=== PATIENT | female | born 1975 | race Caucasian/White ===

== ENCOUNTER 2020-02-27 06:10 | Day surgery (SDC) | payer OTHER ==
[~2020-02-27] VITALS: Ht 165.1 cm; Wt 85.3 kg
[~2020-02-27 06:10] MED LIST: DEPO-PROVE150 MG/11 IM; LIPITOR40 MG PO; LOSARTAN POTASS50 MG PO; METOPROLOL SUC100 MG PO
[2020-02-27] MEDS ORDERED: PHENTERMINE HCL15 MG PO (06:52)
[2020-02-27] MEDS ORDERED: PRILOSEC10 M1 PO (06:52)
--- NOTE | 2020-02-27 08:12 | NUR ---
02/27/20 0812 Elizabeth Ryan 0807- PT ARRIVES TO PACU AWAKE AND TALKING. PT REPORTS NO PAIN OR NAUSEA. RESP EVEN AND UNLABORED. OXYGEN SAT HIGH 90'S ON 3L VIA NC. 0811- OXYGEN TITRATED OFF. PT ASLEEP ON AND OFF.
--- NOTE | 2020-02-27 11:13 | OR ---
[facility] [address], [place] [address] Signed DATE OF OPERATION: 02/27/2020 SURGEON: Ian Powers MD PREOPERATIVE DIAGNOSES: 1. Epigastric abdominal pain. 2. Heartburn. 3. Chronic diarrhea/constipation. POSTOPERATIVE DIAGNOSES: 1. Mild diffuse superficial gastritis. 2. Multiple proximal gastric polyps. PROCEDURES: EGD with CLOtest and biopsies of the duodenum, antrum, and fundic polyps. ESTIMATED BLOOD LOSS: None. INDICATIONS: Mode is a 44-year-old female at 5 feet 5 inches, 187 pounds with a body mass index of 31. She had been asked to see me for upper endoscopy. She has had a lot of bilateral epigastric abdominal pain, heartburn, chronic alternating diarrhea and constipation. She has been on omeprazole. On physical exam, it seems like her pain is more along the costal margins. Her serum H. pylori was negative. She also has a very stressful job and has been through a recent divorce. She has 2 daughters remaining in the house. Overall, she says she is feeling better today. She is still having some pain on the costal margins. I met with Mode in the office and I gave her a booklet on upper endoscopy. We looked at that together along with the risks including, but not limited to gas bloating, crampy, abdominal pain, bleeding, perforation requiring surgery, and missed diagnosis. We also discussed the need for IV conscious sedation. She had expressed understanding and wished to proceed. DESCRIPTION OF PROCEDURE: Mdoe was taken into our endoscopy suite and placed in the supine semi-recumbent position. She was given IV sedation with 5 mg of Versed and 100 mcg of fentanyl. The posterior oropharynx was anesthetized with Hurricaine spray. A bite block was utilized for the case. The adult gastroscope had been introduced and advanced all the way out into the third portion of the duodenum under direct visualization of camera without difficulty. Her duodenum and pyloric bulb looked unremarkable. We took a biopsy of the Electronically Signed By: IAN POWERS MD 02/27/20 1113 PATIENT NAME: MODE LYN OPERATIVE REPORT DATE OF : 71 REPORT #: [id number] PHYSICIAN: IAN PWOERS MD PCP: CLARITZA FELICIANO REPORT IS CONFIDENTIAL AND NOT TO BE RELEASED WITHOUT AUTHORIZATION [facility] [address], [place] [address] Signed third portion of the duodenum because of the history of chronic diarrhea. Back in the stomach showed some very mild superficial erythematous changes consistent with mild gastritis. We took a biopsy of the antrum for CLOtest as well as pathologic review. Upon retroflexion of scope, the incisura was unremarkable. However, she had multiple small proximal benign-appearing gastric polyps consistent using her omeprazole. We took a biopsy of two of those polyps for pathologic review. We did not see an obvious hiatal hernia. The scope was withdrawn up through the GE junction, which was compliant without stricture. There was no gastric or esophageal varices. There was very little irritation to her Z-line. There was no Mullins's mucosa and no distal esophagitis. The middle and upper esophagus were unremarkable. After this, the gas had been suctioned out and the gastroscope removed. Mode tolerated the procedure quite well. RECOMMENDATIONS: I will see Mode back in my office in 7 to 14 days to review her results. Ian Powers MD ALB/MODL /[id number] cc: MD Claritza Hendrickson PA Copies: IAN POWERS MD, LINDA PA ~ Electronically Signed By: IAN POWERS MD 02/27/20 1113 PATIENT NAME: MODE LYN OPERATIVE REPORT DATE OF : 71 REPORT #: [id number] PHYSICIAN: IAN POWERS MD PCP: CLARITZA FELICIANO REPORT IS CONFIDENTIAL AND NOT TO BE RELEASED WITHOUT AUTHORIZATION
--- NOTE | 2020-03-01 12:01 | PATH ---
[facility] [address] [place], [place] [address] Signed SPECIMEN(S): A DUODENUM SPECIMEN(S): B ANTRUM/PYLORUS SPECIMEN(S): C STOMACH POLYP SPECIMEN SOURCE: A. DUODENUM B. ANTRUM/PYLORUS C. STOMACH POLYP CLINICAL HISTORY: Abdominal pain, heartburn, gastritis, gastric polyp. MICROSCOPIC DESCRIPTION: Histologic sections of all submitted blocks are examined by light microscopy. These findings, together with the gross examination, support the pathologic diagnosis. FINAL PATHOLOGIC DIAGNOSIS: A. Duodenum, biopsy: - Benign duodenal mucosa, negative for significantly increased intraepithelial lymphocytosis and villous blunting. B. Antrum/pylorus, biopsy: - Minimal chemical/reactive gastritis. - Negative for intestinal metaplasia. - Negative for Helicobacter pylori organisms on routine stain. C. Stomach polyp, polypectomy: - Benign gastric mucosa with rare dilated fundic glands, compatible with fundic gland polyp. DDF:emb:C2NR GROSS DESCRIPTION: Three specimens are received in three containers, labeled "LJ." A. The specimen, labeled "LJ, 1," and designated on the requisition "duodenum," is received in formalin and consists of a single curry soft tissue fragment that measures 0.3 cm in greatest dimension. The specimen is entirely submitted in cassette (A1). B. The specimen, labeled "LJ, 2," and designated on the requisition "antrum/pylorus," is received in formalin and consists of a single curry soft tissue fragment that measures 0.3 cm in greatest dimension. The specimen is entirely submitted in cassette (B1). C. The specimen, labeled "LJ, 3," and designated on the requisition "stomach polyp," is received in formalin and consists of two curry soft tissue fragments PATIENT NAME: MODE LYN PATHOLOGY DATE OF : 71 REPORT #: [id number] PHYSICIAN: CARYN PATHOLOGY PCP: BARRY FELICIANO REPORT IS CONFIDENTIAL AND NOT TO BE RELEASED WITHOUT AUTHORIZATION [facility] [address] [place], [place] [address] Signed that measure 0.3 cm in greatest dimension. The specimen is entirely submitted in cassette (C1). AT (under the direct supervision of a pathologist) The Gross Description was prepared using a voice recognition system. The report was reviewed for accuracy; however, sound-alike word errors, addition and/or deletions may occur. If there is any question about this report, please contact Client Services. PERFORMING LABORATORY: The technical component was performed by [facility] [address] ([employer]: Myriam Kirk MD; CLIA# [id number]). [facility], [address] [place] [id number] (CLIA# [id number]). Diagnostician: Adrián Link DO Pathologist Electronically Signed 03/01/2020 Copies: ~ PATIENT NAME: MODE LYN PATHOLOGY DATE OF : 71 REPORT #: [id number] PHYSICIAN: CARYN QUACH PCP: BARRY FELICIANO REPORT IS CONFIDENTIAL AND NOT TO BE RELEASED WITHOUT AUTHORIZATION
== END 2020-02-27 08:55 | disposition home or self-care (01) ==
LOC: DS 06:10 → OPS 06:10 → DS 06:45 → OPS 08:55
PROVIDERS: Colon & Rectal Surgery
PROC: 0DB78ZX Excision of Stomach, Pylorus, Via Natural or Artificial Opening Endoscopic, Diagnostic (ICD-10-PCS; 2020-02-27)
PROC: 0DB68ZX Excision of Stomach, Via Natural or Artificial Opening Endoscopic, Diagnostic (ICD-10-PCS; 2020-02-27)
PROC: 0DB98ZX Excision of Duodenum, Via Natural or Artificial Opening Endoscopic, Diagnostic (ICD-10-PCS; principal; 2020-02-27 06:45)
DX: K29.70 Gastritis, unspecified, without bleeding (principal); K31.7 Polyp of stomach and duodenum; K52.9 Noninfective gastroenteritis and colitis, unspecified; E78.5 Hyperlipidemia, unspecified; E55.9 Vitamin D deficiency, unspecified; E66.9 Obesity, unspecified; I10 Essential (primary) hypertension; F32.9 Major depressive disorder, single episode, unspecified; Z79.899 Other long term (current) drug therapy; Z87.891 Personal history of nicotine dependence; Z68.31 Body mass index [BMI] 31.0-31.9, adult
CPT/HCPCS: 84703; 86677; 99153; G0500; J2250; J3010; J7121